=== PATIENT | male | born 2005 | race Two or more races ===

== ENCOUNTER 2025-06-06 05:55 | Day surgery (SDC) | payer BC, MEDICAID, SELFPAY ==
[2025-06-05 09:05] VITALS: BMI 27.6
[2025-06-05 10:18] LABS: Basophils # (Auto) 0.1 Thou/mm3 (0.0-0.2); Basophils % (Auto) 1 % (0-2.5); Eosinophils # (Auto) 0.2 Thou/mm3 (0.0-0.5); Eosinophils % (Auto) 2 % (0-10); Hematocrit 46.9 % (41.0-53.0); Hemoglobin 16.0 g/dL (13.5-16.0); Immature Granulocytes Auto 0.01 Thou/mm3 (0.00-0.00); Lymphocytes # (Auto) 2.3 Thou/mm3 (1.0-5.0); Lymphocytes % (Auto) 32 % (10-50); Mean Corpuscular HGB Conc 34.1 g/dl (31.0-37.0); Mean Corpuscular Hemoglobin 29.6 pg (25.0-35.0); Mean Corpuscular Volume 87 fL (80-100); Monocytes # (Auto) 0.6 Thou/mm3 (0.0-0.8); Monocytes % (Auto) 9 % (0-12); Neutrophils # (Auto) 4.0 Thou/mm3 (1.8-7.7); Neutrophils % (Auto) 56 % (37-80); Nucleated Red Blood Cell # 0.00 Thou/mm3 (0.00-0.00); Nucleated Red Blood Cell % 0 /100 WBC (0); Platelet Count 174 Thou/mm3 (140-440); RDW Standard Deviation 39.8 fL (35.1-43.9); Red Blood Count 5.40 Miln/mm3 (4.50-5.90); White Blood Count 7.1 Thou/mm3 (4.5-11.0)
[2025-06-05 10:26] LABS: Anion Gap 9 (7-16); BUN/Creatinine Ratio 9 Ratio (12-20); Blood Urea Nitrogen 10 mg/dL (9-23); Calcium 10.3 mg/dL (8.3-10.6); Carbon Dioxide 27.6 mMol/L (20.0-31.0); Chloride 107 mMol/L (98-107); Creatinine (Component) 1.1 mg/dL (0.6-1.3); Estimated Creatinine Clearance 111.5 mL/min (>60); Glucose 97 mg/dL (74-106); Osmolality,Calculated 285 (275-295); Potassium 4.0 mMol/L (3.4-5.1); Sodium 144 mMol/L (136-145); eGFR > 60 See Note
[2025-06-06] VITALS (7 sets, daily range): BP systolic 113–128; BP diastolic 39–82; PULSE 72–81; RESP 13–19; TEMP 36.9; O2SAT 97–100; BMI 27.2
--- NOTE | 2025-06-06 08:54 | PD.SUROPNT ---
Date of Procedure 06/06/25 Pre Op Diagnosis Left buttock mass Post Op Diagnosis Left buttock mass Procedure Excision of left buttock mass Findings An indurated and hard subcutaneous mass in the left buttock Procedure Description Patient brought into the operating room in supine position. After administration of general tracheal anesthesia, patient was placed in right lateral decubitus position. His left buttock was prepped and draped in standard surgical manner. After administration of local anesthesia an approximately 4 cm elliptical incision was made and dissection was deepened into soft tissue. The indurated and hard mass was circumferentially dissected out surrounding subcutaneous tissue and excised. The wound was washed and irrigated. Hemostasis achieved using electrocautery. Subcutaneous tissue closed with interrupted sutures using 2-0 Vicryl and the incision was closed with 4-0 Monocryl in subcuticular fashion. Dermabond applied. Patient tolerated procedure well. He was placed in supine position and extubated. He was breathing spontaneously and without difficulty and was transferred to postanesthesia care in stable condition. Instruments, needles and sponge counts were reported to be correct x 2. Anesthesia GETA and local Pathology / specimen Other (Left buttock mass) Estimated Blood Loss 2 Condition Stable Disposition PACU Surgeon Jimi Medina MD Surgical Staff Operation Date: 06/06/25 08:00 Case Staff Anesthesiologist: Silvestre Ballard
--- NOTE | 2025-06-06 09:00 | SUR.PHASEI ---
0900 patient arrived to recovery resting comfortably in [facility], LMA in place, breathing unlabored, vital signs stable, dressing intact to left buttock; dermabond, no bleeding noted, report received from Dr. Ballard and Brooklynn CRUZ
--- NOTE | 2025-06-06 09:54 | SUR.PHASEII ---
0954 Patient meets discharge criteria from recovery, awake and alert, breathing unlabored, vital signs stable, denies pain, dressing intact; no bleeding noted, ate two jello's and drinking apple juice, denies nausea, able to dress himself into his clothing, discharge instructions given to patient and patients grandmother with the assistance of the telephone baby attendant, saleem signed discharge instructions. Patient given all his belongings prior to discharge, transported via wheelchair and left in a private vehicle.
== END 2025-06-06 09:54 | disposition home or self-care (01) ==
PROVIDERS: PCP Nurse Practitioner Family; Referring Provider Surgery; Visit Provider Surgery
PROC: (CPT 11406; principal; 2025-06-06 08:00)
DX: R22.2 Localized swelling, mass and lump, trunk (principal); L72.3 Sebaceous cyst
CPT/HCPCS: 11406; 36415; 80048; 85025; A4217; A4649; J0736; J1100; J2371; J2704; J2765; J3010; J3490